=== PATIENT | female | born 2000 | race Two or more races ===

== ENCOUNTER 2023-05-18 20:08 | Emergency (ER) | payer OTHER ==
[~2023-05-18] VITALS: Ht 165.1 cm; Wt 56.7 kg
[2023-05-18] MEDS ORDERED: KETO10TA2 PO ×2 (22:28→22:31)
[2023-05-18] MEDS ORDERED: ZOVIRAX400 MG PO (22:29)
[2023-05-18] MEDS ORDERED: NEURONTIN300 MG PO (22:29)
== END 2023-05-18 22:43 | disposition home or self-care (01) ==
LOC: ER 20:08
DX: A60.09 Herpesviral infection of other urogenital tract (principal)

== ENCOUNTER 2025-08-14 07:22 | Emergency (ER) | payer OTHER ==
[~2025-08-14] VITALS: Ht 165.1 cm; Wt 63.5 kg
[~2025-08-14 07:22] MED LIST: KETO10TA2 PO; NEURONTIN300 MG PO; ZOVIRAX400 MG PO
[2025-08-14] MEDS ORDERED: DEXAMETHASONE SODIUM PHOSPHATE 4 MG/ML VIAL IM STA (08:03)
[2025-08-14] MEDS ORDERED: ONDANSETRON HCL 2 MG/ML VIAL IV STA (08:07)
[2025-08-14] MEDS ORDERED: FAMOTIDINE/PF 20 MG/2 ML VIAL IV STA (08:07)
[2025-08-14] MEDS ORDERED: GUAIFENESIN 200 MG/10 ML BLIST.PACK PO ONE (08:15)
[2025-08-14] MEDS ORDERED: ACETAMINOPHEN 500 MG GEL..CAP PO ONE (08:15)
[2025-08-14] MEDS ORDERED: LORATADINE 10 MG TABLET PO ONE (08:15)
[2025-08-14] MEDS ORDERED: CETIRIZINE HCL 10 MG TABLET PO ONE (09:00)
[2025-08-14] MEDS ORDERED: CETIRIZINE HCL 5MG/5ML BLIST.PACK PO ONE (09:15)
[2025-08-14 09:20] LABS: BASO % 0.3 % (0.1-1.2); EOS # 0.08 (0.04-0.54); EOS % 0.6 % (0.7-7.0); LYMPH # 1.43 (1.18-3.74); LYMPH % 10.2 % (19.3-53.1); MEAN PLATELET VOLUME 11.20 fl (9.4-12.4); MONO # 0.84 (0.24-0.82); MONO % 6.0 % (4.7-12.5); NEUT # 11.63 (1.56-6.13); NEUT % 82.5 % (34.0-71.1); RED CELL DISTRIBUTION WIDTH 13.2 % (11.6-14.4)
[2025-08-14 09:26] LABS: COVID-19 AG NEGATIVE (NEGATIVE)
[2025-08-14 10:18] LABS: BAND MAN 12.0 %; LYMPHOCYTE MAN 13.0 %; MONOCYTE MAN 5.0 %; NEUTROPHILS MAN 70.0 %
[2025-08-14] MEDS ORDERED: ALLER-TEC10 MG PO (12:16)
[2025-08-14] MEDS ORDERED: AZITHROMYCIN500 MG PO (12:16)
[2025-08-14] MEDS ORDERED: DELSYM COUGH+C180 ML PO (12:16)
== END 2025-08-14 13:51 | disposition home or self-care (01) ==
LOC: ER 07:23
PROVIDERS: General Practice
DX: J98.8 Other specified respiratory disorders (principal); Z20.822 Contact with and (suspected) exposure to COVID-19; Z91.013 Allergy to seafood